=== PATIENT | male | born 1935 | race Caucasian/White ===

== ENCOUNTER 2017-11-28 14:42 | Inpatient (IN) | payer MEDICARE, OTHER ==
[~2017-11-28] VITALS: Ht 175.3 cm; Wt 67.2 kg
[2017-11-28] VITALS (8 sets, daily range): BP systolic 97–128; BP diastolic 47–64
[~2017-11-28 14:42] MED LIST: ALBUAER3 IN; ALPR0.254; ASCO100076 PO; ASPI81CH43; CALC600T10; DIGO0.124 PO; DRON400T OR; DULO20CA PO; ESOM40CA39 PO; FLUT250M9; FLUT50SP13; GLUCTAB8; LEVA1NEB5; MONT10TA23; MULTTAB; PSEU120T18; SIMV-8; TIOTCAP IN; VERA120T
[2017-11-28] MEDS ORDERED: SODIUM CHLORIDE 0.9% 1,000 ML IVB ONE (15:07)
[2017-11-28 15:32] LABS: Eosinophils # (auto) 0.2 uL; Lymphocytes # (auto) 1.1 uL; Red Cell Distribution Width 15.9 % (11.8-14.3)
[2017-11-28 15:33] LABS: Basophils # (auto) 0.1 uL; Basophils % (auto) 0.6 % (0.0-2.0); Eosinophils % (auto) 1.7 % (0.0-7.0); Hematocrit 22.2 % (41.0-53.0); Hemoglobin 7.2 g/dL (13.5-17.5); Lymphocytes % (auto) 10.1 % (10.0-50.0); Mean Corpuscular Hemoglobin 25.6 pg (28.0-32.0); Mean Corpuscular Hgb Conc. 32.2 g/dL (32.0-36.0); Mean Corpuscular Volume 79.5 fL (80.0-100.0); Monocytes % (auto) 8.7 % (0.0-12.0); Neutrophils # (auto) 8.7 uL; Neutrophils % (auto) 78.9 % (37.0-80.0); Platelet Count (auto) 277 10^3/uL (140-450)
[2017-11-28] MEDS ORDERED: PANTOPRAZOLE 40 MG/10 ML VIAL IV ONE ×2 (15:45→17:00)
[2017-11-28 15:52] LABS: INR 1.03 (0.9-1.15)
[2017-11-28 15:53] LABS: Albumin 2.9 g/dL (3.4-5.0); BUN/Creatinine Ratio 29.5; Bilirubin, Total 0.3 mg/dL (0.2-1.0); Calcium 7.7 mg/dL (8.5-10.1); Total Protein 5.7 g/dL (6.4-8.2)
[2017-11-28] MEDS ORDERED: NITROGLYCERIN 0.4 MG SL TAB SL PRN (17:00)
[2017-11-28] MEDS ORDERED: ALBUTEROL SULF 2.5 MG/0.5ML(0.5%) NEB SOLN NEB PRN (17:00)
[2017-11-28] MEDS ORDERED: MORPHINE SULF INJ 2 MG/ML SYRINGE 1ML IV PRN ×3 (17:00)
[2017-11-28] MEDS: SODIUM CHLORIDE 0.9% 1,000 ML IV SCH (17:46)
[2017-11-28] MEDS: LORazepam 2MG/ML-1ML VIAL IV PRN (17:46)
[2017-11-28] MEDS: PROMETHAZINE HCL 25 MG/ML 1ML IV PRN (17:46)
[2017-11-28] MEDS: IPRATROPIUM BROM 0.5 MG/2.5ML INH SOL NEB SCH (18:07)
[2017-11-28] MEDS: BUDESONIDE (INHALATION) 0.5 MG/2 ML NEB NEB SCH (18:07)
[2017-11-28] MEDS: ALBUTEROL SULF 2.5 MG/0.5ML(0.5%) NEB SOLN NEB SCH (18:07)
[2017-11-28 19:47] LABS: Hematocrit 21.2 % (41.0-53.0)
[2017-11-28] MEDS ORDERED: MULTAQ 400 MG PO SCH (22:00)
[2017-11-28] MEDS ORDERED: ADVAIR 250/50 IN SCH (22:00)
[2017-11-28] MEDS: PANTOPRAZOLE 40 MG/10 ML VIAL IV SCH (22:10)
[2017-11-28] MEDS: CEFOTETAN 1GM/D5W 50ML BAG 50 ML IV SCH (22:10)
[2017-11-28] MEDS: ATORVASTATIN 20 MG TAB PO SCH (22:10)
[2017-11-28] MEDS: MONTELUKAST SODIUM 10 MG TAB PO SCH (22:11)
[2017-11-29] VITALS: BP 115/58
[2017-11-29 00:15] VITALS: BP 83/61
[2017-11-29] MEDS: IPRATROPIUM BROM 0.5 MG/2.5ML INH SOL NEB SCH ×4 (00:30→18:41)
[2017-11-29] MEDS: ALBUTEROL SULF 2.5 MG/0.5ML(0.5%) NEB SOLN NEB SCH ×4 (00:30→18:41)
[2017-11-29] MEDS: SODIUM CHLORIDE 0.9% 1,000 ML IV SCH ×3 (01:30→16:49)
[2017-11-29 02:30] VITALS: BP 124/64
[2017-11-29] MEDS: LORazepam 2MG/ML-1ML VIAL IV PRN (03:35)
[2017-11-29 03:43] LABS: Hemoglobin 8.6 g/dL (13.5-17.5)
[2017-11-29 03:45] LABS: Hematocrit 26.7 % (41.0-53.0)
[2017-11-29] MEDS ORDERED: diphenhdrAMINE HCL 50 MG/1 ML VL IV ONE (05:45)
[2017-11-29] MEDS: BUDESONIDE (INHALATION) 0.5 MG/2 ML NEB NEB SCH ×2 (07:00→18:45)
[2017-11-29] MEDS: CEFOTETAN 1GM/D5W 50ML BAG 50 ML IV SCH ×2 (07:27→18:46)
[2017-11-29] MEDS ORDERED: DIGOXIN 0.125 MG TAB PO SCH (10:00)
[2017-11-29] MEDS ORDERED: SPIRIVA IN SCH (10:00)
[2017-11-29] MEDS: DULOXETINE HCL 20 MG PO SCH (10:00)
[2017-11-29] MEDS: DRONEDARONE HCL 400 MG TAB PO SCH ×2 (10:00→22:13)
[2017-11-29] MEDS: PANTOPRAZOLE 40 MG/10 ML VIAL IV SCH ×2 (10:06→20:38)
[2017-11-29 10:18] LABS: Urine Bacteria NONE SEEN /hpf (None Seen); Urine Blood Negative /uL (Negative); Urine Specific Gravity 1.014 (1.001-1.035); Urine WBC 2 /hpf (0 - 3)
[2017-11-29] MEDS ORDERED: DIGOXIN (250MCG/ML) 2 ML AMPULE IV ONE (12:45)
[2017-11-29] MEDS ORDERED: FAMOTIDINE (10MG/ML) 2ML VL IV ONE (12:45)
[2017-11-29 14:30] LABS: Hematocrit 26.8 % (41.0-53.0); Hemoglobin 8.7 g/dL (13.5-17.5)
[2017-11-29 16:27] VITALS: BP 133/68
[2017-11-29] MEDS ORDERED: SIMV-8 PO (16:50)
[2017-11-29] MEDS ORDERED: VERA1TAB9 PO (16:50)
[2017-11-29] MEDS ORDERED: ESCI10TA PO (16:50)
[2017-11-29] MEDS ORDERED: DRON400T PO (16:50)
[2017-11-29] MEDS ORDERED: PRAS10TA6 PO (16:50)
[2017-11-29] MEDS ORDERED: DIGO0.1262 PO (16:50)
[2017-11-29] MEDS ORDERED: TIOTCAP IN (16:50)
[2017-11-29] MEDS ORDERED: ROFL1TAB2 PO ×2 (16:50→18:38)
[2017-11-29] MEDS ORDERED: ESOM40CA39 PO (16:50)
[2017-11-29] MEDS ORDERED: ASPI81CH43 PO (16:50)
[2017-11-29] MEDS ORDERED: FLUT0.05 NAS (16:50)
[2017-11-29] MEDS ORDERED: FLUT1AER3 IN (18:38)
[2017-11-29 19:50] VITALS: BP 132/65
[2017-11-29 20:04] LABS: Hemoglobin 8.3 g/dL (13.5-17.5)
[2017-11-29 20:06] LABS: Hematocrit 25.7 % (41.0-53.0)
[2017-11-29] MEDS: ALPRAZolam 0.25 MG TAB PO PRN (20:38)
[2017-11-29] MEDS: MONTELUKAST SODIUM 10 MG TAB PO SCH (20:38)
[2017-11-29] MEDS: ATORVASTATIN 20 MG TAB PO SCH (20:38)
[2017-11-30] VITALS (7 sets, daily range): BP systolic 102–121; BP diastolic 49–72
[2017-11-30] MEDS: IPRATROPIUM BROM 0.5 MG/2.5ML INH SOL NEB SCH ×4 (00:22→18:44)
[2017-11-30] MEDS: ALBUTEROL SULF 2.5 MG/0.5ML(0.5%) NEB SOLN NEB SCH ×4 (00:22→18:44)
[2017-11-30] MEDS: SODIUM CHLORIDE 0.9% 1,000 ML IV SCH ×3 (00:49→16:49)
[2017-11-30 05:46] LABS: Basophils # (auto) 0.1 uL; Hemoglobin 8.5 g/dL (13.5-17.5); Lymphocytes # (auto) 1.4 uL; Mean Corpuscular Volume 81.5 fL (80.0-100.0); Neutrophils # (auto) 5.5 uL
[2017-11-30 05:47] LABS: Basophils % (auto) 1.1 % (0.0-2.0); Eosinophils # (auto) 0.4 uL; Hematocrit 25.5 % (41.0-53.0); Lymphocytes % (auto) 16.7 % (10.0-50.0); Mean Corpuscular Hemoglobin 27.1 pg (28.0-32.0); Mean Corpuscular Hgb Conc. 33.2 g/dL (32.0-36.0); Monocytes % (auto) 12.2 % (0.0-12.0); Platelet Count (auto) 250 10^3/uL (140-450); Red Blood Cells 3.13 10^6/uL (4.5-5.90); Red Cell Distribution Width 16.3 % (11.8-14.3); White Blood Cell 8.4 10^3/uL (4.4-10.8)
[2017-11-30 06:00] LABS: INR 1.01 (0.9-1.15); Partial Thromboplastin Time 28.7 sec (23.78-33.04); Prothrombin Time 10.8 sec (9.27-12.13)
[2017-11-30 06:01] LABS: BUN/Creatinine Ratio 14.1; Calcium 7.5 mg/dL (8.5-10.1); Potassium 3.4 mmol/L (3.5-5.1)
[2017-11-30] MEDS: BUDESONIDE (INHALATION) 0.5 MG/2 ML NEB NEB SCH ×2 (06:11→21:11)
[2017-11-30] MEDS: CEFOTETAN 1GM/D5W 50ML BAG 50 ML IV SCH ×2 (07:03→18:38)
[2017-11-30] MEDS: DIGOXIN (250MCG/ML) 2 ML AMPULE IV SCH (09:58)
[2017-11-30] MEDS: PANTOPRAZOLE 40 MG/10 ML VIAL IV SCH ×2 (09:58→21:49)
[2017-11-30] MEDS: DULOXETINE HCL 20 MG PO SCH (09:58)
[2017-11-30] MEDS: DRONEDARONE HCL 400 MG TAB PO SCH ×2 (09:58→21:51)
[2017-11-30] MEDS ORDERED: FAMOTIDINE (10MG/ML) 2ML VL IV SCH (10:00)
[2017-11-30] MEDS ORDERED: POTASSIUM CHL 20MEQ/100ML 100 ML IV ONE (10:45)
[2017-11-30] MEDS ORDERED: LIDOCAINE VISCOUS 2% 15ML UD ONE (12:16)
[2017-11-30] MEDS ORDERED: SODIUM CHLORIDE LOCK 10 ML ONE (12:16)
[2017-11-30] MEDS ORDERED: diphenhdrAMINE HCL 50 MG/1 ML VL ONE (12:17)
[2017-11-30] MEDS: MIDAZOLAM HCL 5 MG/ML-1ML VIAL ONE ×2 (12:23→12:26)
[2017-11-30] MEDS: fentaNYL CITRATE 100 MCG/2 ML VL ONE ×2 (12:23→12:26)
[2017-11-30] MEDS: ATORVASTATIN 20 MG TAB PO SCH (21:51)
[2017-11-30] MEDS: MONTELUKAST SODIUM 10 MG TAB PO SCH (21:52)
[2017-12-01] VITALS (7 sets, daily range): BP systolic 100–119; BP diastolic 56–65
[2017-12-01] MEDS: IPRATROPIUM BROM 0.5 MG/2.5ML INH SOL NEB SCH ×4 (00:32→19:00)
[2017-12-01] MEDS: ALBUTEROL SULF 2.5 MG/0.5ML(0.5%) NEB SOLN NEB SCH ×4 (00:32→19:00)
[2017-12-01] MEDS: ALPRAZolam 0.25 MG TAB PO PRN (00:40)
[2017-12-01] MEDS: CEFOTETAN 1GM/D5W 50ML BAG 50 ML IV SCH ×2 (05:36→17:50)
[2017-12-01] MEDS: SODIUM CHLORIDE 0.9% 1,000 ML IV SCH (05:36)
[2017-12-01 05:58] LABS: Basophils # (auto) 0.1 uL; Basophils % (auto) 0.7 % (0.0-2.0); Eosinophils # (auto) 0.4 uL; Eosinophils % (auto) 4.6 % (0.0-7.0); Hematocrit 26.5 % (41.0-53.0); Hemoglobin 8.9 g/dL (13.5-17.5); Lymphocytes # (auto) 1.6 uL; Lymphocytes % (auto) 17.2 % (10.0-50.0); Mean Corpuscular Hemoglobin 27.5 pg (28.0-32.0); Mean Corpuscular Hgb Conc. 33.6 g/dL (32.0-36.0); Mean Corpuscular Volume 81.8 fL (80.0-100.0); Monocytes # (auto) 1.1 uL; Neutrophils # (auto) 6.1 uL; Neutrophils % (auto) 65.5 % (37.0-80.0); Platelet Count (auto) 249 10^3/uL (140-450); Red Blood Cells 3.24 10^6/uL (4.5-5.90); Red Cell Distribution Width 15.9 % (11.8-14.3); White Blood Cell 9.3 10^3/uL (4.4-10.8)
[2017-12-01 06:15] LABS: BUN/Creatinine Ratio 15.2; Calcium 8.2 mg/dL (8.5-10.1); Potassium 3.7 mmol/L (3.5-5.1)
[2017-12-01] MEDS: BUDESONIDE (INHALATION) 0.5 MG/2 ML NEB NEB SCH ×2 (06:55→19:01)
[2017-12-01] MEDS: DULOXETINE HCL 20 MG PO SCH (10:00)
[2017-12-01] MEDS: PANTOPRAZOLE 40 MG/10 ML VIAL IV SCH ×2 (10:41→21:48)
[2017-12-01] MEDS: DRONEDARONE HCL 400 MG TAB PO SCH ×2 (10:43→21:48)
[2017-12-01] MEDS: DIGOXIN (250MCG/ML) 2 ML AMPULE IV SCH (10:47)
[2017-12-01] MEDS: PROMETHAZINE HCL 25 MG/ML 1ML IV PRN (20:37)
[2017-12-01] MEDS: ATORVASTATIN 20 MG TAB PO SCH (21:48)
[2017-12-01] MEDS: MONTELUKAST SODIUM 10 MG TAB PO SCH (21:48)
[2017-12-02] VITALS: BP 123/66
[2017-12-02] MEDS: IPRATROPIUM BROM 0.5 MG/2.5ML INH SOL NEB SCH ×3 (00:44→11:37)
[2017-12-02] MEDS: ALBUTEROL SULF 2.5 MG/0.5ML(0.5%) NEB SOLN NEB SCH ×3 (00:44→11:37)
[2017-12-02 05:00] VITALS: BP 103/57
[2017-12-02] MEDS: CEFOTETAN 1GM/D5W 50ML BAG 50 ML IV SCH (05:40)
[2017-12-02 05:52] LABS: Basophils # (auto) 0.1 uL; Basophils % (auto) 0.8 % (0.0-2.0); Eosinophils # (auto) 0.4 uL; Eosinophils % (auto) 4.7 % (0.0-7.0); Hematocrit 25.9 % (41.0-53.0); Hemoglobin 8.8 g/dL (13.5-17.5); Lymphocytes # (auto) 1.3 uL; Lymphocytes % (auto) 16.5 % (10.0-50.0); Mean Corpuscular Hemoglobin 27.2 pg (28.0-32.0); Mean Corpuscular Hgb Conc. 33.8 g/dL (32.0-36.0); Mean Corpuscular Volume 80.3 fL (80.0-100.0); Monocytes # (auto) 1.2 uL; Monocytes % (auto) 14.6 % (0.0-12.0); Neutrophils # (auto) 5.1 uL; Neutrophils % (auto) 63.4 % (37.0-80.0); Platelet Count (auto) 258 10^3/uL (140-450); Red Blood Cells 3.22 10^6/uL (4.5-5.90)
[2017-12-02 05:57] LABS: Calcium 7.9 mg/dL (8.5-10.1); Potassium 3.4 mmol/L (3.5-5.1)
[2017-12-02 06:00] LABS: BUN/Creatinine Ratio 14.1
[2017-12-02] MEDS: BUDESONIDE (INHALATION) 0.5 MG/2 ML NEB NEB SCH (06:56)
[2017-12-02 09:00] VITALS: BP 126/60
[2017-12-02] MEDS ORDERED: DIGOXIN 0.125 MG TAB PO SCH (10:00)
[2017-12-02] MEDS: PANTOPRAZOLE 40 MG/10 ML VIAL IV SCH (10:13)
[2017-12-02 11:24] VITALS: BP 126/60
== END 2017-12-02 12:48 | disposition home or self-care (01) | DRG 378 ==
LOC: ER 14:42 → EDBD 14:42 → TELE 14:43 → DOU IN ICU 11-29 16:09 → TELE-CENTR 12-01 23:45
PROVIDERS: ADMIT Internal Medicine; ATTEND Internal Medicine
PROC: 30233N1 Transfusion of Nonautologous Red Blood Cells into Peripheral Vein, Percutaneous Approach (ICD-10-PCS; principal; 2017-11-28)
PROC: 0D758ZZ Dilation of Esophagus, Via Natural or Artificial Opening Endoscopic (ICD-10-PCS; 2017-11-30)
DX: K92.0 Hematemesis (principal); E44.0 Moderate protein-calorie malnutrition; I48.92 Unspecified atrial flutter; D62 Acute posthemorrhagic anemia; D68.69 Other thrombophilia; K22.2 Esophageal obstruction; N20.0 Calculus of kidney; Z87.442 Personal history of urinary calculi; I25.10 Atherosclerotic heart disease of native coronary artery without angina pectoris; Z95.5 Presence of coronary angioplasty implant and graft; I48.0 Paroxysmal atrial fibrillation; I73.9 Peripheral vascular disease, unspecified; E78.5 Hyperlipidemia, unspecified; D64.9 Anemia, unspecified; Z68.21 Body mass index [BMI] 21.0-21.9, adult; Z88.8 Allergy status to other drugs, medicaments and biological substances; K44.9 Diaphragmatic hernia without obstruction or gangrene; I10 Essential (primary) hypertension; J44.9 Chronic obstructive pulmonary disease, unspecified; K80.20 Calculus of gallbladder without cholecystitis without obstruction; N28.1 Cyst of kidney, acquired; N40.0 Benign prostatic hyperplasia without lower urinary tract symptoms; Z90.79 Acquired absence of other genital organ(s)
CPT/HCPCS: 36415; 43248; 71045; 74176; 76775; 80048; 80053; 81001; 82150; 83690; 83735; 85014; 85018; 85025; 85045; 85610; 85730; 86850; 86900; 86901; 86920; 87081; 93005; 94640; 94761; 96374; 99291; A6257; C9113; J2250; J3480; J3490

== ENCOUNTER 2019-02-10 15:04 | Emergency (ER) | payer MEDICARE, OTHER ==
[~2019-02-10] VITALS: Ht 182.9 cm; Wt 66.2 kg
[~2019-02-10 15:04] MED LIST changes: -ALPR0.254; +ALPR0.254 PO; +ASCO500C49 PO; +ASPI81CH43 PO; +CLOP75TA28 PO; +DIGO0.1262 PO; -DRON400T OR; +DRON400T PO; +ESCI10TA PO; +FLUT0.05 NAS; +FLUT1AER3 IN; -FLUT50SP13; -GLUCTAB8; +PRAS10TA6 PO; +ROFL1TAB2 PO; -SIMV-8; +SIMV-8 PO; +VERA120T3 PO
[2019-02-10] MEDS ORDERED: DILTIAZEM HCL 25 MG/5 ML VIAL IV ONE ×2 (17:28→17:45)
[2019-02-10] MEDS ORDERED: DILTIAZEM HCL 120MG ER CAP PO ONE ×2 (17:33→17:45)
[2019-02-10 18:20] LABS: Basophils # (auto) 0.1 uL; Eosinophils # (auto) 0.2 uL; Hemoglobin 11.7 g/dL (13.5-17.5); Lymphocytes # (auto) 1.5 uL; Lymphocytes % (auto) 19.6 % (10.0-50.0); Mean Corpuscular Hemoglobin 23.4 pg (28.0-32.0); Mean Corpuscular Volume 75.1 fL (80.0-100.0)
[2019-02-10 18:22] LABS: Basophils % (auto) 0.9 % (0.0-2.0); Eosinophils % (auto) 2.5 % (0.0-7.0); Hematocrit 37.4 % (41.0-53.0); Mean Corpuscular Hgb Conc. 31.1 g/dL (32.0-36.0); Monocytes # (auto) 0.8 uL; Monocytes % (auto) 11.3 % (0.0-12.0); Neutrophils % (auto) 65.7 % (37.0-80.0); Platelet Count (auto) 258 10^3/uL (140-450); Red Blood Cells 4.99 10^6/uL (4.5-5.90); Red Cell Distribution Width 16.9 % (11.8-14.3); White Blood Cell 7.5 10^3/uL (4.4-10.8)
[2019-02-10 18:25] LABS: Alanine Aminotransferase 23 U/L (16-61); Albumin 3.7 g/dL (3.4-5.0); Anion Gap 9 (5-15); Blood Urea Nitrogen 15 mg/dL (7-18); Calcium 8.6 mg/dL (8.5-10.1); Carbon Dioxide 24 mmol/L (21-32); Chloride 109 mmol/L (98-107); Potassium 4.1 mmol/L (3.5-5.1); Sodium 142 mmol/L (136-145)
[2019-02-10 18:30] LABS: Alkaline Phosphatase 73 U/L (45-117); Aspartate Aminotransferase 18 U/L (15-37); Bilirubin, Total 0.2 mg/dL (0.2-1.0); GFR African American 107 mL/min; GFR Non-African American 88 mL/min; Glucose 96 mg/dL (74-106); Total Protein 7.6 g/dL (6.4-8.2)
[2019-02-10 18:40] LABS: Urine Bacteria FEW /hpf (None Seen); Urine Blood Negative /uL (Negative); Urine Specific Gravity 1.016 (1.001-1.035); Urine WBC <1 /hpf (0 - 3)
[2019-02-10 19:45] VITALS: BP 102/69
== END 2019-02-10 19:15 | disposition home or self-care (01) ==
LOC: ER 15:04
DX: I48.0 Paroxysmal atrial fibrillation (principal); I25.10 Atherosclerotic heart disease of native coronary artery without angina pectoris; J44.9 Chronic obstructive pulmonary disease, unspecified; F32.9 Major depressive disorder, single episode, unspecified; E78.00 Pure hypercholesterolemia, unspecified; I10 Essential (primary) hypertension; Z90.49 Acquired absence of other specified parts of digestive tract; Z88.1 Allergy status to other antibiotic agents; Z88.8 Allergy status to other drugs, medicaments and biological substances; Z79.82 Long term (current) use of aspirin; Z79.51 Long term (current) use of inhaled steroids; Z79.899 Other long term (current) drug therapy
CPT/HCPCS: 36415; 71045; 80053; 81001; 83735; 84484; 85025; 92960; 93005; 94761; 96374

== ENCOUNTER 2019-05-31 14:20 | Emergency (ER) | payer MEDICARE, OTHER ==
[~2019-05-31] VITALS: Ht 182.9 cm; Wt 65.4 kg
[~2019-05-31 14:20] MED LIST changes: -ASPI81CH43; -ASPI81CH43 PO; +BUDE2SUS3 IN; -CLOP75TA28 PO; -DIGO0.124 PO; -DIGO0.1262 PO; -DULO20CA PO; -ESCI10TA PO; -FLUT0.05 NAS; -FLUT250M9; +GLUC1TAB18 PO; +LACTTAB OR; -LEVA1NEB5; +LINA1CAP2 PO; -MONT10TA23; +ONDA-144 PO; -PRAS10TA6 PO; +SERT-274 PO; -SIMV-8 PO; +SIMV5TAB50 PO; -TIOTCAP IN; -VERA120T; -VERA120T3 PO
[2019-05-31 15:21] LABS: Basophils # (auto) 0.1 uL; Hemoglobin 11.4 g/dL (13.5-17.5); Monocytes # (auto) 1.4 uL; White Blood Cell 15.2 10^3/uL (4.4-10.8)
[2019-05-31 15:22] LABS: Basophils % (auto) 0.9 % (0.0-2.0); Eosinophils # (auto) 0.1 uL; Eosinophils % (auto) 0.7 % (0.0-7.0); Hematocrit 34.9 % (41.0-53.0); Lymphocytes # (auto) 1.6 uL; Lymphocytes % (auto) 10.3 % (10.0-50.0); Mean Corpuscular Hemoglobin 25.1 pg (28.0-32.0); Mean Corpuscular Hgb Conc. 32.6 g/dL (32.0-36.0); Monocytes % (auto) 9.2 % (0.0-12.0); Neutrophils % (auto) 78.9 % (37.0-80.0); Platelet Count (auto) 289 10^3/uL (140-450); Red Blood Cells 4.53 10^6/uL (4.5-5.90); Red Cell Distribution Width 18.1 % (11.8-14.3)
[2019-05-31 15:38] LABS: Albumin 3.1 g/dL (3.4-5.0); Anion Gap 10 (5-15); Blood Urea Nitrogen 20 mg/dL (7-18); Calcium 8.8 mg/dL (8.5-10.1); Carbon Dioxide 23 mmol/L (21-32); Chloride 108 mmol/L (98-107); GFR African American 119 mL/min; GFR Non-African American 98 mL/min; Glucose 88 mg/dL (74-106); Potassium 3.6 mmol/L (3.5-5.1); Sodium 141 mmol/L (136-145)
[2019-05-31 15:43] LABS: Alanine Aminotransferase 18 U/L (16-61); Alkaline Phosphatase 69 U/L (45-117); Aspartate Aminotransferase 11 U/L (15-37); Bilirubin, Total 0.4 mg/dL (0.2-1.0); Total Protein 7.2 g/dL (6.4-8.2)
[2019-05-31] MEDS ORDERED: PROMETHAZINE W/CODEINE 5 ML ORAL SYRUP PO ONE (22:45)
[2019-05-31 22:51] VITALS: BP 121/65
== END 2019-05-31 22:53 | disposition home or self-care (01) ==
LOC: ER 14:20
DX: J44.9 Chronic obstructive pulmonary disease, unspecified (principal); I48.91 Unspecified atrial fibrillation; I25.10 Atherosclerotic heart disease of native coronary artery without angina pectoris; E78.5 Hyperlipidemia, unspecified; I10 Essential (primary) hypertension
CPT/HCPCS: 36415; 71046; 80053; 84484; 85025; 93005

== ENCOUNTER 2019-09-27 12:27 | Inpatient (IN) | payer MEDICARE, OTHER ==
[~2019-09-27] VITALS: Ht 182.9 cm; Wt 68.0 kg
[2019-09-27] MEDS ORDERED: SODIUM CHLORIDE 0.9% 1,000 ML IVB ONE (13:32)
[2019-09-27] MEDS ORDERED: DIGOXIN (250MCG/ML) 2 ML AMPULE IV ONE (13:45)
[2019-09-27 14:08] LABS: Albumin 3.3 g/dL (3.4-5.0); Anion Gap 7 (5-15); Blood Urea Nitrogen 14 mg/dL (7-18); Calcium 9.1 mg/dL (8.5-10.1); Carbon Dioxide 26 mmol/L (21-32); Chloride 110 mmol/L (98-107); Glucose 86 mg/dL (74-106); Magnesium 2.2 mg/dL (1.6-2.6); Potassium 3.3 mmol/L (3.5-5.1); Sodium 143 mmol/L (136-145)
[2019-09-27 14:14] LABS: Alanine Aminotransferase 19 U/L (16-61); Alkaline Phosphatase 66 U/L (45-117); Aspartate Aminotransferase 17 U/L (15-37); BUN/Creatinine Ratio 19.7; Bilirubin, Total 0.3 mg/dL (0.2-1.0); GFR African American 137 mL/min; GFR Non-African American 113 mL/min; Total Protein 7.8 g/dL (6.4-8.2)
[2019-09-27 14:21] LABS: INR 1.04 (0.9-1.15); Partial Thromboplastin Time 31.3 sec (23.64-32.05)
[2019-09-27 14:32] LABS: Basophils # (auto) 0.1 10 ^3/uL (0-0.2); Eosinophils # (auto) 0.2 10 ^3/uL (0-0.8); Hematocrit 39.3 % (41.0-53.0); Monocytes # (auto) 1.2 10 ^3/uL (0-1.3); White Blood Cell 13.1 10^3/uL (4.4-10.8)
[2019-09-27 14:33] LABS: Basophils % (auto) 0.4 % (0.0-2.0); Eosinophils % (auto) 1.3 % (0.0-7.0); Hemoglobin 12.3 g/dL (13.5-17.5); Lymphocytes # (auto) 1.6 10 ^3/uL (0.4-5.4); Lymphocytes % (auto) 12.1 % (10.0-50.0); Mean Corpuscular Hemoglobin 24.2 pg (28.0-32.0); Mean Corpuscular Hgb Conc. 31.3 g/dL (32.0-36.0); Mean Corpuscular Volume 77.4 fL (80.0-100.0); Monocytes % (auto) 9.5 % (0.0-12.0); Neutrophils % (auto) 76.7 % (37.0-80.0); Platelet Count (auto) 293 10^3/uL (140-450); Red Blood Cells 5.08 10^6/uL (4.5-5.90); Red Cell Distribution Width 18.8 % (11.8-14.3)
[2019-09-27] MEDS ORDERED: cefTRIAXone 1GM/50ML D5W 50 ML IV ONE (15:15)
[2019-09-27] MEDS ORDERED: POTASSIUM CHL 20 Meq TABLET PO ONE (15:15)
[2019-09-27] MEDS ORDERED: ACETAMINOPHEN 500 MG TAB PO PRN (16:15)
[2019-09-27] MEDS ORDERED: NITROGLYCERIN 0.4 MG SL TAB SL PRN (16:15)
[2019-09-27] MEDS ORDERED: MORPHINE SULF INJ 2 MG/ML SYRINGE 1ML IV PRN (16:15)
[2019-09-27] MEDS: ENOXAPARIN SOD 40 MG/0.4 ML SYRINGE SC SCH (16:27)
[2019-09-27] MEDS: ZINC SULFATE 220mg CAP or TAB PO SCH (16:27)
[2019-09-27] MEDS ORDERED: ASCORBIC ACID 1,000 MG TAB PO SCH (16:27)
[2019-09-27 17:04] LABS: Lactic Acid w/Reflex 2.1 mmol/L (0.4-2.0)
[2019-09-27 17:27] LABS: CRP High Sensitivity 2.51 mg/dL (< 0.3)
[2019-09-27] MEDS ORDERED: LEVALBUTEROL HCL 1.25 MG/3 ML NEB NEB SCH (18:00)
[2019-09-27] MEDS ORDERED: IPRATROPIUM BROM 0.5 MG/2.5ML INH SOL NEB SCH (18:00)
[2019-09-27 18:20] VITALS: BP 121/67
[2019-09-27 19:21] VITALS: BP 127/67
[2019-09-27] MEDS: PIPERACILLIN-TAZOB 3.375GM 100 ML IV SCH ×2 (19:23→23:38)
[2019-09-27 20:00] VITALS: BP 106/63
[2019-09-27] MEDS ORDERED: GABA300C10 PO (20:11)
[2019-09-27] MEDS ORDERED: GABAPENTIN 300 MG CAP PO ONE (21:15)
[2019-09-27] MEDS: methylPREDNISolone SOD SUCC 40 MG/ML VL IV SCH (21:30)
[2019-09-27] MEDS: DOXYCYCLINE 100 MG TAB/CAP PO SCH (21:30)
[2019-09-27] MEDS: DRONEDARONE HCL 400 MG TAB PO SCH (21:31)
[2019-09-27] MEDS: ALPRAZolam 0.25 MG TAB PO PRN (21:58)
[2019-09-27] MEDS ORDERED: ALBUTEROL SULF HFA 90MCG INH 200DOSE IN SCH (22:00)
[2019-09-27] MEDS ORDERED: BUDESONIDE (INHALATION) 0.5 MG/2 ML NEB NEB SCH (22:00)
[2019-09-27 22:36] LABS: Urine Bacteria NONE SEEN /hpf (None Seen); Urine Blood Negative /uL (Negative); Urine Specific Gravity 1.018 (1.001-1.035); Urine WBC 1 /hpf (0 - 3)
[2019-09-27] MEDS ORDERED: GABA-339 PO (22:57)
[2019-09-28] VITALS (8 sets, daily range): BP systolic 105–125; BP diastolic 60–70
[2019-09-28] MEDS: guaiFENesin-DM 100/10mg/5ml SYR PO PRN ×2 (01:05→11:34)
[2019-09-28 05:37] LABS: Basophils # (auto) 0 10 ^3/uL (0-0.2); Basophils % (auto) 0.3 % (0.0-2.0); Eosinophils # (auto) 0 10 ^3/uL (0-0.8); Eosinophils % (auto) 0.1 % (0.0-7.0); Hematocrit 32.5 % (41.0-53.0); Hemoglobin 10.2 g/dL (13.5-17.5); Lymphocytes # (auto) 0.3 10 ^3/uL (0.4-5.4); Lymphocytes % (auto) 4.9 % (10.0-50.0); Mean Corpuscular Hemoglobin 24.2 pg (28.0-32.0); Mean Corpuscular Hgb Conc. 31.3 g/dL (32.0-36.0); Mean Corpuscular Volume 77.4 fL (80.0-100.0); Monocytes # (auto) 0.1 10 ^3/uL (0-1.3); Monocytes % (auto) 1.6 % (0.0-12.0); Neutrophils # (auto) 6.6 10 ^3/uL (1.6-8.6); Neutrophils % (auto) 93.1 % (37.0-80.0); Platelet Count (auto) 226 10^3/uL (140-450); Red Cell Distribution Width 18.5 % (11.8-14.3); White Blood Cell 7.1 10^3/uL (4.4-10.8)
[2019-09-28 06:00] LABS: Potassium 3.9 mmol/L (3.5-5.1)
[2019-09-28] MEDS: PIPERACILLIN-TAZOB 3.375GM 100 ML IV SCH ×3 (06:05→20:37)
[2019-09-28 06:07] LABS: Albumin 2.6 g/dL (3.4-5.0); BUN/Creatinine Ratio 25.8; Bilirubin, Total 0.3 mg/dL (0.2-1.0); Calcium 8.3 mg/dL (8.5-10.1); Total Protein 6.2 g/dL (6.4-8.2)
[2019-09-28] MEDS: LEVALBUTEROL HCL 1.25 MG/3 ML NEB NEB SCH ×4 (07:11→19:17)
[2019-09-28] MEDS ORDERED: CHOLECALCIFEROL (VITD3) 1,000IU=25mCg TAB PO SCH (10:00)
[2019-09-28] MEDS ORDERED: DIGOXIN 0.125 MG TAB PO SCH (10:00)
[2019-09-28] MEDS: methylPREDNISolone SOD SUCC 40 MG/ML VL IV SCH ×2 (10:51→21:45)
[2019-09-28] MEDS: DOXYCYCLINE 100 MG TAB/CAP PO SCH (10:52)
[2019-09-28] MEDS: ZINC SULFATE 220mg CAP or TAB PO SCH (10:53)
[2019-09-28] MEDS: ASPirin 81 mg TAB PO SCH (10:53)
[2019-09-28] MEDS: ENOXAPARIN SOD 40 MG/0.4 ML SYRINGE SC SCH (10:53)
[2019-09-28] MEDS: DRONEDARONE HCL 400 MG TAB PO SCH ×2 (11:34→21:45)
[2019-09-28] MEDS ORDERED: ACETAMINOPHEN 500 MG TAB PO PRN (11:45)
[2019-09-28] MEDS ORDERED: FUROSEMIDE 20 MG/2 ML VIAL IV ONE (11:45)
[2019-09-28] MEDS ORDERED: POTASSIUM CHL 20 Meq TABLET PO ONE (11:45)
[2019-09-28] MEDS ORDERED: PANTOPRAZOLE 40 MG TAB PO ONE (11:45)
[2019-09-28] MEDS ORDERED: ONDANSETRON HCL 4 MG/2 ML VIAL IV PRN (14:30)
[2019-09-28] MEDS: IPRATROPIUM BROM 0.5 MG/2.5ML INH SOL NEB SCH (19:17)
[2019-09-28] MEDS: BUDESONIDE (INHALATION) 0.5 MG/2 ML NEB NEB SCH (19:17)
[2019-09-28] MEDS: ALPRAZolam 0.25 MG TAB PO PRN (21:45)
[2019-09-28] MEDS: GABAPENTIN 300 MG CAP PO SCH (21:45)
[2019-09-29] MEDS: IPRATROPIUM BROM 0.5 MG/2.5ML INH SOL NEB SCH ×4 (00:35→19:14)
[2019-09-29] MEDS: LEVALBUTEROL HCL 1.25 MG/3 ML NEB NEB SCH ×4 (00:35→19:14)
[2019-09-29] MEDS: PIPERACILLIN-TAZOB 3.375GM 100 ML IV SCH (03:56)
[2019-09-29 05:00] VITALS: BP 106/58
[2019-09-29] MEDS: BUDESONIDE (INHALATION) 0.5 MG/2 ML NEB NEB SCH ×2 (07:03→19:14)
[2019-09-29 07:43] LABS: Calcium 8.6 mg/dL (8.5-10.1); Potassium 3.7 mmol/L (3.5-5.1)
[2019-09-29 07:47] LABS: BUN/Creatinine Ratio 25.4
[2019-09-29 08:00] VITALS: BP 112/67
[2019-09-29 09:00] VITALS: BP 112/67
[2019-09-29] MEDS: DRONEDARONE HCL 400 MG TAB PO SCH ×2 (10:00→21:36)
[2019-09-29] MEDS: ZINC SULFATE 220mg CAP or TAB PO SCH (10:19)
[2019-09-29] MEDS: PANTOPRAZOLE 40 MG TAB PO SCH (10:19)
[2019-09-29] MEDS: GABAPENTIN 300 MG CAP PO SCH ×2 (10:19→21:36)
[2019-09-29] MEDS: methylPREDNISolone SOD SUCC 40 MG/ML VL IV SCH (10:19)
[2019-09-29] MEDS: ENOXAPARIN SOD 40 MG/0.4 ML SYRINGE SC SCH (10:19)
[2019-09-29] MEDS: ASPirin 81 mg TAB PO SCH (10:20)
[2019-09-29] MEDS: FLORASTOR (S. BOULARDII) 250 MG CAP PO SCH (10:20)
[2019-09-29] MEDS: SERTRALINE HCL 50 MG TAB PO SCH (10:20)
[2019-09-29 12:45] VITALS: BP 123/69
[2019-09-29 17:00] VITALS: BP 114/62
[2019-09-29] MEDS: DOXYCYCLINE 100 MG TAB/CAP PO SCH (21:36)
[2019-09-29] MEDS: ALPRAZolam 0.25 MG TAB PO PRN (21:46)
[2019-09-29 22:00] VITALS: BP 115/63
[2019-09-29] MEDS: guaiFENesin-DM 100/10mg/5ml SYR PO PRN (22:15)
[2019-09-30] MEDS: LEVALBUTEROL HCL 1.25 MG/3 ML NEB NEB SCH ×4 (00:33→18:58)
[2019-09-30 05:30] VITALS: BP 117/69
[2019-09-30] MEDS: BUDESONIDE (INHALATION) 0.5 MG/2 ML NEB NEB SCH ×2 (06:21→18:58)
[2019-09-30] MEDS: IPRATROPIUM BROM 0.5 MG/2.5ML INH SOL NEB SCH ×3 (06:21→18:58)
[2019-09-30 09:00] VITALS: BP 112/53
[2019-09-30] MEDS: FLORASTOR (S. BOULARDII) 250 MG CAP PO SCH (10:59)
[2019-09-30] MEDS: GABAPENTIN 300 MG CAP PO SCH ×2 (10:59→21:12)
[2019-09-30] MEDS: DOXYCYCLINE 100 MG TAB/CAP PO SCH ×2 (10:59→21:12)
[2019-09-30] MEDS: DRONEDARONE HCL 400 MG TAB PO SCH ×2 (10:59→21:11)
[2019-09-30] MEDS: predniSONE 20 MG TAB PO SCH (11:00)
[2019-09-30] MEDS: SERTRALINE HCL 50 MG TAB PO SCH (11:00)
[2019-09-30] MEDS: ZINC SULFATE 220mg CAP or TAB PO SCH (11:00)
[2019-09-30] MEDS: ASPirin 81 mg TAB PO SCH (11:00)
[2019-09-30] MEDS: PANTOPRAZOLE 40 MG TAB PO SCH (11:00)
[2019-09-30] MEDS: guaiFENesin-DM 100/10mg/5ml SYR PO PRN (11:11)
[2019-09-30 12:42] VITALS: BP 120/79
[2019-09-30] MEDS ORDERED: ONDANSETRON HCL 4 MG/2 ML VIAL IV PRN (13:00)
[2019-09-30] MEDS ORDERED: FUROSEMIDE 20 MG/2 ML VIAL IV ONE (13:00)
[2019-09-30 17:08] VITALS: BP 115/92
[2019-09-30 22:00] VITALS: BP 116/67
[2019-09-30] MEDS: ALPRAZolam 0.25 MG TAB PO PRN (22:06)
[2019-09-30 23:33] VITALS: BP 116/67
[2019-10-01] MEDS: LEVALBUTEROL HCL 1.25 MG/3 ML NEB NEB SCH ×3 (00:16→13:31)
[2019-10-01 05:00] VITALS: BP 102/52
[2019-10-01] MEDS: BUDESONIDE (INHALATION) 0.5 MG/2 ML NEB NEB SCH ×2 (06:27→22:40)
[2019-10-01] MEDS: IPRATROPIUM BROM 0.5 MG/2.5ML INH SOL NEB SCH ×4 (06:27→22:39)
[2019-10-01 09:00] VITALS: BP 106/56
[2019-10-01] MEDS ORDERED: FUROSEMIDE 20 MG/2 ML VIAL IV SCH (10:00)
[2019-10-01] MEDS: predniSONE 20 MG TAB PO SCH (10:34)
[2019-10-01] MEDS: FLORASTOR (S. BOULARDII) 250 MG CAP PO SCH (10:34)
[2019-10-01] MEDS: GABAPENTIN 300 MG CAP PO SCH ×2 (10:34→21:37)
[2019-10-01] MEDS: ZINC SULFATE 220mg CAP or TAB PO SCH (10:34)
[2019-10-01] MEDS: ASPirin 81 mg TAB PO SCH (10:35)
[2019-10-01] MEDS: SERTRALINE HCL 50 MG TAB PO SCH (10:35)
[2019-10-01] MEDS: PANTOPRAZOLE 40 MG TAB PO SCH (10:35)
[2019-10-01] MEDS: DOXYCYCLINE 100 MG TAB/CAP PO SCH ×2 (10:35→21:37)
[2019-10-01] MEDS: DRONEDARONE HCL 400 MG TAB PO SCH ×2 (10:37→21:36)
[2019-10-01 14:13] VITALS: BP 106/64
[2019-10-01] MEDS ORDERED: METOPROLOL TARTRATE 1MG/1ML-5ML VIAL IV PRN (15:30)
[2019-10-01 16:42] VITALS: BP 96/61
[2019-10-01] MEDS: NYSTATIN (MOUTH-THROAT) 500,000 UNITS/5 ML SUSP MT SCH ×2 (17:58→21:36)
[2019-10-01] MEDS: FUROSEMIDE 40 MG/4 ML VIAL IV SCH (17:58)
[2019-10-01] MEDS: ALBUTEROL SULF 2.5 MG/0.5ML(0.5%) NEB SOLN NEB SCH ×2 (19:13→22:39)
[2019-10-01] MEDS: methylPREDNISolone SOD SUCC 40 MG/ML VL IV SCH (21:36)
[2019-10-01] MEDS: ALPRAZolam 0.25 MG TAB PO PRN (21:37)
[2019-10-01] MEDS: guaiFENesin-DM 100/10mg/5ml SYR PO PRN (21:51)
[2019-10-01 22:00] VITALS: BP 98/55
[2019-10-02] MEDS: ALBUTEROL SULF 2.5 MG/0.5ML(0.5%) NEB SOLN NEB SCH ×4 (02:28→14:36)
[2019-10-02] MEDS: IPRATROPIUM BROM 0.5 MG/2.5ML INH SOL NEB SCH ×4 (02:28→14:36)
[2019-10-02 05:00] VITALS: BP 102/60
[2019-10-02] MEDS: FUROSEMIDE 40 MG/4 ML VIAL IV SCH (05:37)
[2019-10-02 05:38] LABS: Basophils # (auto) 0 10 ^3/uL (0-0.2); Eosinophils # (auto) 0 10 ^3/uL (0-0.8); Hemoglobin 12.1 g/dL (13.5-17.5); Lymphocytes # (auto) 0.5 10 ^3/uL (0.4-5.4); Red Cell Distribution Width 18.2 % (11.8-14.3)
[2019-10-02] MEDS: methylPREDNISolone SOD SUCC 40 MG/ML VL IV SCH (05:38)
[2019-10-02] MEDS: NYSTATIN (MOUTH-THROAT) 500,000 UNITS/5 ML SUSP MT SCH ×2 (05:38→12:29)
[2019-10-02 05:40] LABS: Basophils % (auto) 0.1 % (0.0-2.0); Hematocrit 37.6 % (41.0-53.0); Mean Corpuscular Hemoglobin 24.6 pg (28.0-32.0); Mean Corpuscular Hgb Conc. 32.1 g/dL (32.0-36.0); Mean Corpuscular Volume 76.6 fL (80.0-100.0); Monocytes # (auto) 0.3 10 ^3/uL (0-1.3); Monocytes % (auto) 3.1 % (0.0-12.0); Neutrophils # (auto) 8.9 10 ^3/uL (1.6-8.6); Neutrophils % (auto) 91.8 % (37.0-80.0); Platelet Count (auto) 266 10^3/uL (140-450); Red Blood Cells 4.91 10^6/uL (4.5-5.90); White Blood Cell 9.7 10^3/uL (4.4-10.8)
[2019-10-02 05:51] LABS: INR 1.11 (0.9-1.15); Partial Thromboplastin Time 28.2 sec (23.64-32.05)
[2019-10-02 05:58] LABS: Potassium 3.6 mmol/L (3.5-5.1)
[2019-10-02 06:05] LABS: BUN/Creatinine Ratio 33.7; Bilirubin, Total 0.3 mg/dL (0.2-1.0); Calcium 8.6 mg/dL (8.5-10.1); Magnesium 2.1 mg/dL (1.6-2.6); Phosphorus 4.2 mg/dL (2.5-4.90); Total Protein 6.6 g/dL (6.4-8.2)
[2019-10-02 09:00] VITALS: BP 101/62
[2019-10-02] MEDS: DRONEDARONE HCL 400 MG TAB PO SCH (10:37)
[2019-10-02] MEDS: SERTRALINE HCL 50 MG TAB PO SCH (10:37)
[2019-10-02] MEDS: FLORASTOR (S. BOULARDII) 250 MG CAP PO SCH (10:37)
[2019-10-02] MEDS: GABAPENTIN 300 MG CAP PO SCH (10:37)
[2019-10-02] MEDS: DOXYCYCLINE 100 MG TAB/CAP PO SCH (10:37)
[2019-10-02] MEDS: PANTOPRAZOLE 40 MG TAB PO SCH (10:37)
[2019-10-02] MEDS: ASPirin 81 mg TAB PO SCH (10:38)
[2019-10-02] MEDS: ZINC SULFATE 220mg CAP or TAB PO SCH (10:38)
[2019-10-02 13:00] VITALS: BP 137/64
== END 2019-10-02 15:39 | disposition home or self-care (01) | DRG 871 ==
LOC: EDBD 12:27 → ER 12:27 → TELE 12:28 → TELE-EAST 18:14 → TELE-WESTW 23:39
PROVIDERS: ADMIT Nurse Practitioner Acute Care; ATTEND Internal Medicine
DX: A41.9 Sepsis, unspecified organism (principal); J18.9 Pneumonia, unspecified organism; J96.21 Acute and chronic respiratory failure with hypoxia; J44.1 Chronic obstructive pulmonary disease with (acute) exacerbation; D68.59 Other primary thrombophilia; E44.1 Mild protein-calorie malnutrition; R64 Cachexia; J44.0 Chronic obstructive pulmonary disease with (acute) lower respiratory infection; E87.6 Hypokalemia; D64.9 Anemia, unspecified; F41.9 Anxiety disorder, unspecified; F32.9 Major depressive disorder, single episode, unspecified; I48.0 Paroxysmal atrial fibrillation; I25.10 Atherosclerotic heart disease of native coronary artery without angina pectoris; K59.00 Constipation, unspecified; I11.0 Hypertensive heart disease with heart failure; I50.9 Heart failure, unspecified; E78.5 Hyperlipidemia, unspecified; K21.9 Gastro-esophageal reflux disease without esophagitis; Z88.1 Allergy status to other antibiotic agents; Z88.8 Allergy status to other drugs, medicaments and biological substances; I25.2 Old myocardial infarction; Z90.49 Acquired absence of other specified parts of digestive tract; Z90.89 Acquired absence of other organs; Z79.899 Other long term (current) drug therapy; Z79.51 Long term (current) use of inhaled steroids; Z20.828 Contact with and (suspected) exposure to other viral communicable diseases
CPT/HCPCS: 36415; 36600; 71045; 80048; 80053; 80162; 81001; 82728; 82805; 83605; 83615; 83735; 83880; 84100; 84443; 84484; 85025; 85379; 85610; 85730; 86141; 87040; 87070; 87804; 87880; 93005; 94640; 96361; 96365; 96372; 96375; 97116; 97530; G0378; J2405; J2543

== ENCOUNTER 2019-10-26 02:40 | Inpatient (IN) | payer MEDICARE, OTHER ==
[~2019-10-26] VITALS: Ht 188 cm; Wt 67.3 kg
[~2019-10-26 02:40] MED LIST changes: +GABA-339 PO
[2019-10-26] MEDS ORDERED: ASPirin 81 mg TAB PO ONE (05:00)
[2019-10-26] MEDS ORDERED: NITROGLYCERIN 0.2MG/HR TOPICAL PATCH TD ONE (05:00)
[2019-10-26 06:49] LABS: Basophils # (auto) 0 10 ^3/uL (0-0.2); Eosinophils # (auto) 0.3 10 ^3/uL (0-0.8); Eosinophils % (auto) 3.4 % (0.0-7.0); Monocytes # (auto) 0.7 10 ^3/uL (0-1.3)
[2019-10-26 06:51] LABS: Basophils % (auto) 0.6 % (0.0-2.0); Hemoglobin 10.6 g/dL (13.5-17.5); Lymphocytes # (auto) 1.5 10 ^3/uL (0.4-5.4); Lymphocytes % (auto) 20.4 % (10.0-50.0); Mean Corpuscular Hemoglobin 24.7 pg (28.0-32.0); Mean Corpuscular Hgb Conc. 32.1 g/dL (32.0-36.0); Mean Corpuscular Volume 77.1 fL (80.0-100.0); Monocytes % (auto) 9.4 % (0.0-12.0); Neutrophils # (auto) 4.8 10 ^3/uL (1.6-8.6); Neutrophils % (auto) 66.2 % (37.0-80.0); Platelet Count (auto) 169 10^3/uL (140-450); Red Blood Cells 4.28 10^6/uL (4.5-5.90); Red Cell Distribution Width 19.1 % (11.8-14.3); White Blood Cell 7.3 10^3/uL (4.4-10.8)
[2019-10-26 07:04] LABS: INR 1.02 (0.9-1.15); Partial Thromboplastin Time 29.8 sec (23.64-32.05)
[2019-10-26 07:35] LABS: Albumin 2.8 g/dL (3.4-5.0); BUN/Creatinine Ratio 26.8; Bilirubin, Total 0.2 mg/dL (0.2-1.0); Calcium 8.6 mg/dL (8.5-10.1); Magnesium 2.2 mg/dL (1.6-2.6); Total Protein 6.2 g/dL (6.4-8.2)
[2019-10-26] MEDS ORDERED: LACTULOSE 20Gm/30ML SOLN PO PRN (09:00)
[2019-10-26] MEDS: SODIUM CHLORIDE 0.9% 1,000 ML IV SCH (09:14)
[2019-10-26] MEDS ORDERED: NITROGLYCERIN 0.4 MG SL TAB SL PRN (09:45)
[2019-10-26] MEDS ORDERED: ALBUTEROL SULF 2.5 MG/0.5ML(0.5%) NEB SOLN NEB PRN (09:45)
[2019-10-26] MEDS ORDERED: MORPHINE SULF INJ 2 MG/ML SYRINGE 1ML IV PRN (09:45)
[2019-10-26] MEDS ORDERED: ASCORBIC ACID 1,000 MG TAB PO SCH (10:00)
[2019-10-26] MEDS ORDERED: ASPirin 81 mg TAB PO SCH (10:00)
[2019-10-26] MEDS: Linaclotide Base (Linzess) 72 MCG PO SCH (10:00)
[2019-10-26] MEDS: METOPROLOL TARTRATE 25 MG TAB PO SCH ×3 (10:22→22:00)
[2019-10-26] MEDS: ENOXAPARIN SOD 80 MG/0.8ML SYRINGE SC SCH ×2 (10:22→21:24)
[2019-10-26] MEDS: ALPRAZolam 0.25 MG TAB PO SCH ×2 (10:51→21:20)
[2019-10-26] MEDS: VERAPAMIL HCL 120 mg ER tab PO SCH (10:52)
[2019-10-26] MEDS: SERTRALINE HCL 50 MG TAB PO SCH (10:56)
[2019-10-26] MEDS ORDERED: GABAPENTIN 300 MG CAP PO SCH (11:00)
[2019-10-26] MEDS ORDERED: PANTOPRAZOLE 40 MG TAB PO SCH (11:00)
[2019-10-26 11:07] LABS: Cholesterol 133 mg/dL (< 200); HDL Cholesterol 52 mg/dL (40-59); LDL Cholesterol 83 mg/dL (< 100); Triglycerides 84 mg/dL (< 150)
[2019-10-26 11:30] VITALS: BP 123/67
[2019-10-26] MEDS: ALBUTEROL SULF 2.5 MG/0.5ML(0.5%) NEB SOLN NEB SCH ×3 (11:59→23:23)
[2019-10-26] MEDS: IPRATROPIUM BROM 0.5 MG/2.5ML INH SOL NEB SCH ×3 (11:59→23:22)
[2019-10-26 12:32] VITALS: BP 123/67
[2019-10-26 13:59] VITALS: BP 123/67
[2019-10-26] MEDS: DRONEDARONE HCL 400 MG TAB PO SCH ×2 (14:17→21:34)
[2019-10-26 16:20] VITALS: BP 99/72
[2019-10-26] MEDS ORDERED: ATOR10TA52 PO (19:02)
[2019-10-26] MEDS ORDERED: ALBU2TAB4 PO (19:02)
[2019-10-26] MEDS ORDERED: ASPI325T4 PO (19:02)
[2019-10-26] MEDS ORDERED: VERA120T3 PO (19:02)
[2019-10-26] MEDS ORDERED: DOCU-94 PO (19:02)
[2019-10-26] MEDS: ATORVASTATIN 20 MG TAB PO SCH (21:20)
[2019-10-26 22:00] VITALS: BP 105/62
[2019-10-26] MEDS: SIMVASTATIN 5 MG PO SCH (22:00)
[2019-10-26] MEDS: BUDESONIDE (INHALATION) 0.5 MG/2 ML NEB NEB SCH (22:19)
[2019-10-27] MEDS: SODIUM CHLORIDE 0.9% 1,000 ML IV SCH ×2 (02:27→11:29)
[2019-10-27 03:12] LABS: Urine Bacteria FEW /hpf (None Seen); Urine Blood TRACE /uL (Negative); Urine Specific Gravity 1.007 (1.001-1.035); Urine WBC 3 /hpf (0 - 3)
[2019-10-27] MEDS ORDERED: ACETAMINOPHEN 325 MG TAB PO ONE (04:30)
[2019-10-27 05:00] VITALS: BP 101/65
[2019-10-27 05:16] LABS: Basophils # (auto) 0.1 10 ^3/uL (0-0.2); Eosinophils # (auto) 0.3 10 ^3/uL (0-0.8); Hemoglobin 10.5 g/dL (13.5-17.5); Lymphocytes # (auto) 1.9 10 ^3/uL (0.4-5.4); Monocytes # (auto) 0.7 10 ^3/uL (0-1.3)
[2019-10-27 05:19] LABS: Basophils % (auto) 0.8 % (0.0-2.0); Eosinophils % (auto) 4.8 % (0.0-7.0); Hematocrit 32.3 % (41.0-53.0); Lymphocytes % (auto) 29.4 % (10.0-50.0); Mean Corpuscular Hemoglobin 25.1 pg (28.0-32.0); Mean Corpuscular Hgb Conc. 32.6 g/dL (32.0-36.0); Mean Corpuscular Volume 76.8 fL (80.0-100.0); Monocytes % (auto) 10.5 % (0.0-12.0); Neutrophils # (auto) 3.6 10 ^3/uL (1.6-8.6); Neutrophils % (auto) 54.5 % (37.0-80.0); Platelet Count (auto) 172 10^3/uL (140-450); Red Blood Cells 4.21 10^6/uL (4.5-5.90); Red Cell Distribution Width 18.8 % (11.8-14.3); White Blood Cell 6.6 10^3/uL (4.4-10.8)
[2019-10-27 05:33] LABS: Albumin 2.9 g/dL (3.4-5.0); Calcium 8.1 mg/dL (8.5-10.1); Potassium 3.7 mmol/L (3.5-5.1)
[2019-10-27 05:34] LABS: INR 1.09 (0.9-1.15); Partial Thromboplastin Time 38.3 sec (23.64-32.05)
[2019-10-27 05:38] LABS: BUN/Creatinine Ratio 22.4; Bilirubin, Total 0.4 mg/dL (0.2-1.0); Total Protein 6.1 g/dL (6.4-8.2)
[2019-10-27] MEDS: IPRATROPIUM BROM 0.5 MG/2.5ML INH SOL NEB SCH ×3 (06:06→18:27)
[2019-10-27] MEDS: ALBUTEROL SULF 2.5 MG/0.5ML(0.5%) NEB SOLN NEB SCH ×3 (06:06→18:27)
[2019-10-27] MEDS: BUDESONIDE (INHALATION) 0.5 MG/2 ML NEB NEB SCH ×2 (06:06→18:28)
[2019-10-27] MEDS: Fluticasone-Umeclidinium-Vilan (Trelegy Ellipta 100-62.5-25 Mcg/I IN SCH (06:41)
[2019-10-27] MEDS ORDERED: IODIXANOL 320MG/ML 100ML BTL IV ONE ×4 (07:04→10:51)
[2019-10-27 07:30] VITALS: BP 124/62
[2019-10-27] MEDS ORDERED: LIDOCAINE 2%HCL (LOCAL ANESTH.) INJ 20ML MDV ONE (08:53)
[2019-10-27 09:02] VITALS: BP 124/62
[2019-10-27] MEDS ORDERED: fentaNYL CITRATE 100 MCG/2 ML VL ONE (09:29)
[2019-10-27] MEDS ORDERED: ANGIOMAX 250 MG VIAL IV ONE (09:29)
[2019-10-27] MEDS ORDERED: SODIUM CHL 0.9% 50 ML ONE (09:29)
[2019-10-27] MEDS ORDERED: MIDAZOLAM HCL 1MG/1ML-2 ML VIAL ONE (09:29)
[2019-10-27] MEDS ORDERED: VERAPAMIL 2.5MG/ML INJ 2ML VIAL IV ONE (09:34)
[2019-10-27] MEDS ORDERED: HEPARIN SODIUM (PORCINE) 5000 UNITS/ML 1ML VIAL ONE (09:34)
[2019-10-27] MEDS: METOPROLOL TARTRATE 25 MG TAB PO SCH ×2 (10:00→22:22)
[2019-10-27] MEDS: NITROGLYCERIN 0.2MG/HR TOPICAL PATCH TD SCH (10:00)
[2019-10-27] MEDS: SERTRALINE HCL 50 MG TAB PO SCH (10:00)
[2019-10-27] MEDS: ASPirin 81 mg TAB PO SCH (10:00)
[2019-10-27] MEDS: VERAPAMIL HCL 120 mg ER tab PO SCH (10:00)
[2019-10-27] MEDS: DRONEDARONE HCL 400 MG TAB PO SCH ×2 (10:00→22:21)
[2019-10-27] MEDS: GABAPENTIN 300 MG CAP PO SCH (10:00)
[2019-10-27] MEDS: ASCORBIC ACID 500 MG TAB PO SCH (10:00)
[2019-10-27] MEDS: Linaclotide Base (Linzess) 72 MCG PO SCH (10:00)
[2019-10-27] MEDS: ALPRAZolam 0.25 MG TAB PO SCH ×2 (10:00→22:20)
[2019-10-27] MEDS ORDERED: diphenhdrAMINE HCL 50 MG/1 ML VL ONE (10:13)
[2019-10-27] MEDS ORDERED: CLOPIDOGREL 300 MG TAB ONE (11:27)
[2019-10-27] MEDS ORDERED: CLOPIDOGREL 300 MG TAB PO ONE (11:30)
[2019-10-27] MEDS ORDERED: ASPirin 81 mg TAB ONE (11:36)
[2019-10-27 17:59] VITALS: BP 136/69
[2019-10-27 22:00] VITALS: BP 130/68
[2019-10-27] MEDS: SIMVASTATIN 5 MG PO SCH (22:00)
[2019-10-27] MEDS: ATORVASTATIN 20 MG TAB PO SCH (22:20)
[2019-10-27] MEDS: PANTOPRAZOLE 40 MG TAB PO SCH (22:22)
[2019-10-28] MEDS: SIMVASTATIN 5 MG PO SCH
[2019-10-28] MEDS: IPRATROPIUM BROM 0.5 MG/2.5ML INH SOL NEB SCH ×4 (00:35→18:38)
[2019-10-28] MEDS: ALBUTEROL SULF 2.5 MG/0.5ML(0.5%) NEB SOLN NEB SCH ×4 (00:35→18:38)
[2019-10-28 05:00] VITALS: BP 114/68
[2019-10-28] MEDS: SODIUM CHLORIDE 0.9% 1,000 ML IV SCH ×2 (05:39→14:09)
[2019-10-28] MEDS: Fluticasone-Umeclidinium-Vilan (Trelegy Ellipta 100-62.5-25 Mcg/I IN SCH (06:14)
[2019-10-28 06:29] LABS: Basophils # (auto) 0 10 ^3/uL (0-0.2); Basophils % (auto) 0.6 % (0.0-2.0); Eosinophils # (auto) 0.2 10 ^3/uL (0-0.8); Eosinophils % (auto) 3.6 % (0.0-7.0); Hematocrit 32.8 % (41.0-53.0); Hemoglobin 10.6 g/dL (13.5-17.5); Lymphocytes % (auto) 15.2 % (10.0-50.0); Mean Corpuscular Hgb Conc. 32.2 g/dL (32.0-36.0); Mean Corpuscular Volume 77.5 fL (80.0-100.0); Monocytes # (auto) 0.8 10 ^3/uL (0-1.3); Monocytes % (auto) 12.4 % (0.0-12.0); Neutrophils # (auto) 4.6 10 ^3/uL (1.6-8.6); Neutrophils % (auto) 68.2 % (37.0-80.0); Platelet Count (auto) 158 10^3/uL (140-450); Red Blood Cells 4.23 10^6/uL (4.5-5.90); Red Cell Distribution Width 18.9 % (11.8-14.3); White Blood Cell 6.8 10^3/uL (4.4-10.8)
[2019-10-28] MEDS: BUDESONIDE (INHALATION) 0.5 MG/2 ML NEB NEB SCH ×2 (06:40→18:38)
[2019-10-28 06:50] LABS: Calcium 8.3 mg/dL (8.5-10.1); Potassium 3.7 mmol/L (3.5-5.1)
[2019-10-28 07:02] LABS: BUN/Creatinine Ratio 22.8
[2019-10-28 08:00] VITALS: BP 111/73
[2019-10-28 09:00] VITALS: BP 117/73
[2019-10-28] MEDS: ASPirin 81 mg TAB PO SCH (09:53)
[2019-10-28] MEDS: CLOPIDOGREL BISULFATE 75 MG TAB PO SCH (09:53)
[2019-10-28] MEDS: METOPROLOL TARTRATE 25 MG TAB PO SCH ×2 (09:54→22:00)
[2019-10-28] MEDS: VERAPAMIL HCL 120 mg ER tab PO SCH (09:54)
[2019-10-28] MEDS: GABAPENTIN 300 MG CAP PO SCH (09:54)
[2019-10-28] MEDS: SERTRALINE HCL 50 MG TAB PO SCH (09:54)
[2019-10-28] MEDS: ASCORBIC ACID 500 MG TAB PO SCH (09:55)
[2019-10-28] MEDS: ALPRAZolam 0.25 MG TAB PO SCH ×2 (09:55→22:24)
[2019-10-28] MEDS: NITROGLYCERIN 0.2MG/HR TOPICAL PATCH TD SCH (09:55)
[2019-10-28] MEDS: Linaclotide Base (Linzess) 72 MCG PO SCH ×3 (09:56→20:18)
[2019-10-28] MEDS: PANTOPRAZOLE 40 MG TAB PO SCH ×2 (10:00→22:24)
[2019-10-28] MEDS: DRONEDARONE HCL 400 MG TAB PO SCH ×2 (10:00→22:24)
[2019-10-28 13:00] VITALS: BP 99/49
[2019-10-28 16:46] VITALS: BP 85/51
[2019-10-28] MEDS ORDERED: SODIUM CHLORIDE 0.9% 500 ML IV ONE (19:45)
[2019-10-28 22:00] VITALS: BP 83/44
[2019-10-28] MEDS: ATORVASTATIN 20 MG TAB PO SCH (22:23)
[2019-10-29] VITALS: BP 102/51
[2019-10-29] MEDS: IPRATROPIUM BROM 0.5 MG/2.5ML INH SOL NEB SCH ×3 (00:31→11:34)
[2019-10-29] MEDS: ALBUTEROL SULF 2.5 MG/0.5ML(0.5%) NEB SOLN NEB SCH ×3 (00:31→11:34)
[2019-10-29] MEDS ORDERED: ACETAMINOPHEN 325 MG TAB PO PRN (01:00)
[2019-10-29 05:00] VITALS: BP 99/56
[2019-10-29] MEDS: SODIUM CHLORIDE 0.9% 1,000 ML IV SCH (05:08)
[2019-10-29] MEDS: BUDESONIDE (INHALATION) 0.5 MG/2 ML NEB NEB SCH (06:26)
[2019-10-29] MEDS: Fluticasone-Umeclidinium-Vilan (Trelegy Ellipta 100-62.5-25 Mcg/I IN SCH (07:18)
[2019-10-29 08:06] VITALS: BP 99/56
[2019-10-29 08:14] VITALS: BP 108/59
[2019-10-29 09:00] VITALS: BP 108/59
[2019-10-29] MEDS: GABAPENTIN 300 MG CAP PO SCH (09:36)
[2019-10-29] MEDS: ALPRAZolam 0.25 MG TAB PO SCH (09:36)
[2019-10-29] MEDS: PANTOPRAZOLE 40 MG TAB PO SCH (09:36)
[2019-10-29] MEDS: VERAPAMIL HCL 120 mg ER tab PO SCH (09:36)
[2019-10-29] MEDS: SERTRALINE HCL 50 MG TAB PO SCH (09:37)
[2019-10-29] MEDS: CLOPIDOGREL BISULFATE 75 MG TAB PO SCH (09:37)
[2019-10-29] MEDS: DRONEDARONE HCL 400 MG TAB PO SCH (09:37)
[2019-10-29] MEDS: ASCORBIC ACID 500 MG TAB PO SCH (09:37)
[2019-10-29] MEDS: ASPirin 81 mg TAB PO SCH (09:37)
[2019-10-29] MEDS: Linaclotide Base (Linzess) 72 MCG PO SCH (09:38)
[2019-10-29 12:19] VITALS: BP 108/59
== END 2019-10-29 14:05 | disposition home or self-care (01) | DRG 246 ==
LOC: EDBD 02:40 → ER 02:44 → TELE 02:45 → TELE-CENTR 11:25
PROVIDERS: ADMIT Internal Medicine; ATTEND Family Medicine
PROC: 027135Z Dilation of Coronary Artery, Two Arteries with Two Drug-eluting Intraluminal Devices, Percutaneous Approach (ICD-10-PCS; 2019-10-26)
PROC: 4A023N7 Measurement of Cardiac Sampling and Pressure, Left Heart, Percutaneous Approach (ICD-10-PCS; principal; 2019-10-27)
PROC: B2111ZZ Fluoroscopy of Multiple Coronary Arteries using Low Osmolar Contrast (ICD-10-PCS; 2019-10-27)
PROC: B2151ZZ Fluoroscopy of Left Heart using Low Osmolar Contrast (ICD-10-PCS; 2019-10-27)
PROC: 02C03ZZ Extirpation of Matter from Coronary Artery, One Artery, Percutaneous Approach (ICD-10-PCS; 2019-10-27)
DX: T82.855A Stenosis of coronary artery stent, initial encounter (principal); I21.4 Non-ST elevation (NSTEMI) myocardial infarction; J96.10 Chronic respiratory failure, unspecified whether with hypoxia or hypercapnia; I48.91 Unspecified atrial fibrillation; J44.9 Chronic obstructive pulmonary disease, unspecified; D64.9 Anemia, unspecified; E78.5 Hyperlipidemia, unspecified; N40.0 Benign prostatic hyperplasia without lower urinary tract symptoms; D63.8 Anemia in other chronic diseases classified elsewhere; I25.10 Atherosclerotic heart disease of native coronary artery without angina pectoris; F32.9 Major depressive disorder, single episode, unspecified; I10 Essential (primary) hypertension; K21.9 Gastro-esophageal reflux disease without esophagitis; F41.9 Anxiety disorder, unspecified; E78.00 Pure hypercholesterolemia, unspecified; Z88.1 Allergy status to other antibiotic agents; Z88.8 Allergy status to other drugs, medicaments and biological substances; Z79.899 Other long term (current) drug therapy; Z90.49 Acquired absence of other specified parts of digestive tract; Z90.89 Acquired absence of other organs; Z99.81 Dependence on supplemental oxygen; Z86.14 Personal history of Methicillin resistant Staphylococcus aureus infection; Z87.01 Personal history of pneumonia (recurrent)
CPT/HCPCS: 36415; 71045; 80048; 80053; 80061; 81001; 82550; 83735; 83880; 84484; 85025; 85610; 85730; 86141; 87081; 92928; 93005; 93306; 93458; 94640; 96360; 99152; 99153; C1874; G0378; J2250; Q9967

== ENCOUNTER 2020-03-25 21:54 | Inpatient (IN) | payer MEDICARE, OTHER ==
[~2020-03-25] VITALS: Ht 182.9 cm; Wt 67.0 kg
[~2020-03-25 21:54] MED LIST changes: +ALBU2TAB4 PO; +ASPI325T4 PO; +ATOR10TA52 PO; +DOCU-94 PO; +MULT-733; -MULTTAB; -SIMV5TAB50 PO; +VERA120T3 PO
[2020-03-25 23:30] LABS: Basophils # (auto) 0 10 ^3/uL (0-0.2); Eosinophils # (auto) 0 10 ^3/uL (0-0.8); Eosinophils % (auto) 0.1 % (0.0-7.0); Lymphocytes # (auto) 0.2 10 ^3/uL (0.4-5.4); Monocytes # (auto) 0.1 10 ^3/uL (0-1.3); Red Blood Cells 4.82 10^6/uL (4.5-5.90)
[2020-03-25 23:31] LABS: Basophils % (auto) 0.3 % (0.0-2.0); Hematocrit 39.3 % (41.0-53.0); Hemoglobin 12.2 g/dL (13.5-17.5); Lymphocytes % (auto) 2.2 % (10.0-50.0); Mean Corpuscular Hemoglobin 25.3 pg (28.0-32.0); Mean Corpuscular Volume 81.6 fL (80.0-100.0); Neutrophils # (auto) 7.5 10 ^3/uL (1.6-8.6); Neutrophils % (auto) 96.4 % (37.0-80.0); Platelet Count (auto) 213 10^3/uL (140-450); White Blood Cell 7.8 10^3/uL (4.4-10.8)
[2020-03-25 23:33] LABS: Red Cell Distribution Width 28.2 % (11.8-14.3)
[2020-03-25 23:46] LABS: Partial Thromboplastin Time 32.8 sec (23.0-31.2)
[2020-03-25 23:52] LABS: Alanine Aminotransferase 20 U/L (16-61); Albumin 3.4 g/dL (3.4-5.0); Anion Gap 5 (5-15); Aspartate Aminotransferase 14 U/L (15-37); BUN/Creatinine Ratio 21.3; Blood Urea Nitrogen 17 mg/dL (7-18); Calcium 8.8 mg/dL (8.5-10.1); Carbon Dioxide 26 mmol/L (21-32); Chloride 109 mmol/L (98-107); GFR African American 119 mL/min; GFR Non-African American 98 mL/min; Glucose 127 mg/dL (74-106); Magnesium 2.1 mg/dL (1.6-2.6); Potassium 4.2 mmol/L (3.5-5.1); Sodium 140 mmol/L (136-145)
[2020-03-25 23:57] LABS: Alkaline Phosphatase 73 U/L (45-117); Bilirubin, Total 0.3 mg/dL (0.2-1.0); Total Protein 6.9 g/dL (6.4-8.2)
[2020-03-26] MEDS ORDERED: ALBUTEROL SULF 2.5 MG/0.5ML(0.5%) NEB SOLN NEB ONE ×2 (00:45)
[2020-03-26] MEDS ORDERED: IPRATROPIUM BROM 0.5 MG/2.5ML INH SOL NEB ONE ×2 (00:45)
[2020-03-26] MEDS ORDERED: FUROSEMIDE 20 MG/2 ML VIAL IV ONE (01:45)
[2020-03-26] MEDS ORDERED: NITROGLYCERIN 0.4 MG SL TAB SL PRN (02:45)
[2020-03-26] MEDS ORDERED: ACETAMINOPHEN 325 MG TAB PO PRN (02:45)
[2020-03-26] MEDS ORDERED: ONDANSETRON HCL 4 MG/2 ML VIAL IV PRN (02:45)
[2020-03-26] MEDS ORDERED: MORPHINE SULF INJ 2 MG/ML SYRINGE 1ML IV PRN (02:45)
[2020-03-26 05:57] LABS: Urine Bacteria FEW /hpf (None Seen); Urine Blood Negative /uL (Negative); Urine Hyaline Cast FEW /lpf (0 - 2); Urine Mucus FEW (None Seen); Urine Specific Gravity 1.022 (1.001-1.035); Urine WBC 2 /hpf (0 - 3)
[2020-03-26] MEDS: IPRATROPIUM BROM 0.5 MG/2.5ML INH SOL NEB SCH ×3 (06:00→20:40)
[2020-03-26] MEDS: BUDESONIDE (INHALATION) 0.5 MG/2 ML NEB NEB SCH ×2 (07:11→20:48)
[2020-03-26] MEDS: ALBUTEROL SULF 2.5 MG/0.5ML(0.5%) NEB SOLN NEB SCH ×3 (07:11→20:40)
[2020-03-26] MEDS: VERAPAMIL HCL 120 mg ER tab PO SCH (09:47)
[2020-03-26] MEDS: SERTRALINE HCL 50 MG TAB PO SCH (09:48)
[2020-03-26] MEDS: ENOXAPARIN SOD 40 MG/0.4 ML SYRINGE SC SCH (09:48)
[2020-03-26] MEDS ORDERED: FAMOTIDINE 20 MG TAB PO SCH (10:00)
[2020-03-26] MEDS ORDERED: GABAPENTIN 300 MG CAP PO SCH (10:00)
[2020-03-26] MEDS ORDERED: AMIODARONE HCL 200 MG TAB PO ONE (17:30)
[2020-03-26] MEDS ORDERED: CLOPIDOGREL BISULFATE 75 MG TAB PO ONE (17:30)
[2020-03-26] MEDS ORDERED: cefTRIAXone 1GM/50ML D5W 50 ML IV ONE (18:00)
[2020-03-26] MEDS ORDERED: PANTOPRAZOLE 40 MG TAB PO ONE (18:00)
[2020-03-26] MEDS ORDERED: AZITHROMYCIN 250 MG TAB PO ONE (18:00)
[2020-03-26] MEDS ORDERED: ASPirin 81 mg TAB PO ONE (18:00)
[2020-03-26] MEDS ORDERED: methylPREDNISolone SOD SUCC 125 MG/2 ML VL IV ONE (18:00)
[2020-03-26] MEDS: ATORVASTATIN 20 MG TAB PO SCH (21:48)
[2020-03-26] MEDS: TEMAZEPAM 15 MG CAP PO PRN (21:48)
[2020-03-26] MEDS: GABAPENTIN 300 MG CAP PO SCH (21:48)
[2020-03-27] MEDS: ALBUTEROL SULF 2.5 MG/0.5ML(0.5%) NEB SOLN NEB SCH ×5 (01:08→19:20)
[2020-03-27] MEDS: ALPRAZolam 0.25 MG TAB PO PRN (02:43)
[2020-03-27 06:25] LABS: Basophils # (auto) 0 10 ^3/uL (0-0.2); Eosinophils # (auto) 0 10 ^3/uL (0-0.8); Monocytes # (auto) 0.1 10 ^3/uL (0-1.3)
[2020-03-27 06:30] LABS: Basophils % (auto) 0.1 % (0.0-2.0); Hematocrit 38.4 % (41.0-53.0); Hemoglobin 12.1 g/dL (13.5-17.5); Lymphocytes # (auto) 0.4 10 ^3/uL (0.4-5.4); Lymphocytes % (auto) 7.5 % (10.0-50.0); Mean Corpuscular Hemoglobin 25.5 pg (28.0-32.0); Mean Corpuscular Hgb Conc. 31.5 g/dL (32.0-36.0); Mean Corpuscular Volume 80.8 fL (80.0-100.0); Monocytes % (auto) 2.7 % (0.0-12.0); Neutrophils # (auto) 4.4 10 ^3/uL (1.6-8.6); Neutrophils % (auto) 89.7 % (37.0-80.0); Platelet Count (auto) 226 10^3/uL (140-450); Red Blood Cells 4.75 10^6/uL (4.5-5.90); White Blood Cell 4.9 10^3/uL (4.4-10.8)
[2020-03-27 06:40] LABS: Calcium 8.7 mg/dL (8.5-10.1); Potassium 3.8 mmol/L (3.5-5.1)
[2020-03-27 06:42] LABS: BUN/Creatinine Ratio 32.8
[2020-03-27 06:48] LABS: Red Cell Distribution Width 28.1 % (11.8-14.3)
[2020-03-27] MEDS: IPRATROPIUM BROM 0.5 MG/2.5ML INH SOL NEB SCH ×4 (09:38→19:21)
[2020-03-27] MEDS: BUDESONIDE (INHALATION) 0.5 MG/2 ML NEB NEB SCH ×2 (09:38→19:21)
[2020-03-27] MEDS ORDERED: methylPREDNISolone SOD SUCC 40 MG/ML VL IV SCH (10:00)
[2020-03-27] MEDS: ASPirin 81 mg TAB PO SCH (10:19)
[2020-03-27] MEDS: CLOPIDOGREL BISULFATE 75 MG TAB PO SCH (10:20)
[2020-03-27] MEDS: AMIODARONE HCL 200 MG TAB PO SCH ×2 (10:20→21:35)
[2020-03-27] MEDS: PANTOPRAZOLE 40 MG TAB PO SCH (10:20)
[2020-03-27] MEDS: GABAPENTIN 300 MG CAP PO SCH ×2 (10:20→21:35)
[2020-03-27] MEDS: VERAPAMIL HCL 120 mg ER tab PO SCH (10:20)
[2020-03-27] MEDS: ENOXAPARIN SOD 40 MG/0.4 ML SYRINGE SC SCH (10:21)
[2020-03-27] MEDS: SERTRALINE HCL 50 MG TAB PO SCH (10:21)
[2020-03-27] MEDS: methylPREDNISolone SOD SUCC 40 MG/ML VL IV SCH ×2 (15:10→21:36)
[2020-03-27] MEDS ORDERED: PANT40TA2 PO (16:39)
[2020-03-27] MEDS ORDERED: GABA300C10 PO (16:39)
[2020-03-27] MEDS ORDERED: CLOP75TA28 PO (16:39)
[2020-03-27 17:00] VITALS: BP 123/72
[2020-03-27] MEDS: cefTRIAXone 1GM/50ML D5W 50 ML IV SCH (21:34)
[2020-03-27] MEDS: ATORVASTATIN 20 MG TAB PO SCH (21:35)
[2020-03-27] MEDS: AZITHROMYCIN 250 MG TAB PO SCH (21:35)
[2020-03-27 22:00] VITALS: BP 131/73
[2020-03-28] MEDS: ALBUTEROL SULF 2.5 MG/0.5ML(0.5%) NEB SOLN NEB SCH ×4 (00:23→19:33)
[2020-03-28] MEDS: IPRATROPIUM BROM 0.5 MG/2.5ML INH SOL NEB SCH ×4 (00:24→19:32)
[2020-03-28] MEDS: TEMAZEPAM 15 MG CAP PO PRN ×2 (00:29→22:40)
[2020-03-28 05:00] VITALS: BP 118/71
[2020-03-28] MEDS: ALPRAZolam 0.25 MG TAB PO PRN (05:33)
[2020-03-28] MEDS: methylPREDNISolone SOD SUCC 40 MG/ML VL IV SCH ×3 (05:33→22:47)
[2020-03-28] MEDS: BUDESONIDE (INHALATION) 0.5 MG/2 ML NEB NEB SCH ×2 (07:23→22:00)
[2020-03-28 08:58] VITALS: BP 114/75
[2020-03-28] MEDS: ENOXAPARIN SOD 40 MG/0.4 ML SYRINGE SC SCH (09:30)
[2020-03-28] MEDS: CLOPIDOGREL BISULFATE 75 MG TAB PO SCH (09:30)
[2020-03-28] MEDS: ASPirin 81 mg TAB PO SCH (09:30)
[2020-03-28] MEDS: PANTOPRAZOLE 40 MG TAB PO SCH (09:31)
[2020-03-28] MEDS: AMIODARONE HCL 200 MG TAB PO SCH ×2 (09:31→22:47)
[2020-03-28] MEDS: VERAPAMIL HCL 120 mg ER tab PO SCH (09:31)
[2020-03-28] MEDS: SERTRALINE HCL 50 MG TAB PO SCH (09:31)
[2020-03-28] MEDS: GABAPENTIN 300 MG CAP PO SCH ×2 (09:31→22:48)
[2020-03-28 13:00] VITALS: BP 117/64
[2020-03-28 16:49] VITALS: BP 109/63
[2020-03-28 22:00] VITALS: BP 118/56
[2020-03-28] MEDS: AZITHROMYCIN 250 MG TAB PO SCH (22:47)
[2020-03-28] MEDS: cefTRIAXone 1GM/50ML D5W 50 ML IV SCH (22:47)
[2020-03-28] MEDS: ATORVASTATIN 20 MG TAB PO SCH (22:48)
[2020-03-29] MEDS: ALBUTEROL SULF 2.5 MG/0.5ML(0.5%) NEB SOLN NEB SCH ×6 (00:38→22:40)
[2020-03-29 03:48] VITALS: BP 118/56
[2020-03-29 05:00] VITALS: BP 136/78
[2020-03-29] MEDS: ALPRAZolam 0.25 MG TAB PO PRN (05:49)
[2020-03-29] MEDS: methylPREDNISolone SOD SUCC 40 MG/ML VL IV SCH ×2 (05:49→22:22)
[2020-03-29] MEDS: IPRATROPIUM BROM 0.5 MG/2.5ML INH SOL NEB SCH ×5 (06:29→22:40)
[2020-03-29] MEDS: BUDESONIDE (INHALATION) 0.5 MG/2 ML NEB NEB SCH ×2 (06:29→19:08)
[2020-03-29] MEDS: ASPirin 81 mg TAB PO SCH (08:56)
[2020-03-29] MEDS: VERAPAMIL HCL 120 mg ER tab PO SCH (08:57)
[2020-03-29] MEDS: AMIODARONE HCL 200 MG TAB PO SCH ×2 (08:58→22:23)
[2020-03-29] MEDS: GABAPENTIN 300 MG CAP PO SCH ×2 (08:58→22:23)
[2020-03-29] MEDS: CLOPIDOGREL BISULFATE 75 MG TAB PO SCH (08:59)
[2020-03-29] MEDS: SERTRALINE HCL 50 MG TAB PO SCH (08:59)
[2020-03-29] MEDS: PANTOPRAZOLE 40 MG TAB PO SCH (08:59)
[2020-03-29 09:00] VITALS: BP 123/72
[2020-03-29] MEDS: ENOXAPARIN SOD 40 MG/0.4 ML SYRINGE SC SCH (09:00)
[2020-03-29 12:36] VITALS: BP 126/72
[2020-03-29] MEDS: guaiFENesin-DM 100/10mg/5ml SYR PO PRN ×2 (13:57→22:23)
[2020-03-29 16:57] VITALS: BP 130/64
[2020-03-29] MEDS: AZITHROMYCIN 250 MG TAB PO SCH (20:59)
[2020-03-29 22:00] VITALS: BP 118/64
[2020-03-29] MEDS: cefTRIAXone 1GM/50ML D5W 50 ML IV SCH (22:22)
[2020-03-29] MEDS: TEMAZEPAM 15 MG CAP PO PRN (22:23)
[2020-03-29] MEDS: ATORVASTATIN 20 MG TAB PO SCH (22:23)
[2020-03-30] MEDS: ALPRAZolam 0.25 MG TAB PO PRN (03:50)
[2020-03-30 05:00] VITALS: BP 120/66
[2020-03-30] MEDS: ALBUTEROL SULF 2.5 MG/0.5ML(0.5%) NEB SOLN NEB SCH ×2 (06:00→11:10)
[2020-03-30] MEDS: IPRATROPIUM BROM 0.5 MG/2.5ML INH SOL NEB SCH ×2 (06:00→11:10)
[2020-03-30] MEDS: BUDESONIDE (INHALATION) 0.5 MG/2 ML NEB NEB SCH (06:00)
[2020-03-30 09:00] VITALS: BP 113/65
[2020-03-30] MEDS: ASPirin 81 mg TAB PO SCH (09:35)
[2020-03-30] MEDS: VERAPAMIL HCL 120 mg ER tab PO SCH (09:35)
[2020-03-30] MEDS: methylPREDNISolone SOD SUCC 40 MG/ML VL IV SCH (09:35)
[2020-03-30] MEDS: CLOPIDOGREL BISULFATE 75 MG TAB PO SCH (09:36)
[2020-03-30] MEDS: GABAPENTIN 300 MG CAP PO SCH (09:36)
[2020-03-30] MEDS: PANTOPRAZOLE 40 MG TAB PO SCH (09:36)
[2020-03-30] MEDS: ENOXAPARIN SOD 40 MG/0.4 ML SYRINGE SC SCH (09:36)
[2020-03-30] MEDS: AMIODARONE HCL 200 MG TAB PO SCH (09:36)
[2020-03-30] MEDS: SERTRALINE HCL 50 MG TAB PO SCH (09:36)
[2020-03-30] MEDS: guaiFENesin-DM 100/10mg/5ml SYR PO PRN (09:37)
== END 2020-03-30 12:30 | disposition home or self-care (01) | DRG 190 ==
LOC: EDBD 21:54 → ER 22:00 → TELE 22:01 → TELE-WESTW 03-27 16:20
PROVIDERS: ADMIT Nurse Practitioner; ATTEND Internal Medicine
DX: J44.1 Chronic obstructive pulmonary disease with (acute) exacerbation (principal); J96.20 Acute and chronic respiratory failure, unspecified whether with hypoxia or hypercapnia; J18.9 Pneumonia, unspecified organism; J44.0 Chronic obstructive pulmonary disease with (acute) lower respiratory infection; I50.9 Heart failure, unspecified; I48.91 Unspecified atrial fibrillation; E78.5 Hyperlipidemia, unspecified; I11.0 Hypertensive heart disease with heart failure; F32.9 Major depressive disorder, single episode, unspecified; I25.10 Atherosclerotic heart disease of native coronary artery without angina pectoris; R13.10 Dysphagia, unspecified; F41.9 Anxiety disorder, unspecified; K21.9 Gastro-esophageal reflux disease without esophagitis; R53.81 Other malaise; Z20.828 Contact with and (suspected) exposure to other viral communicable diseases; E78.00 Pure hypercholesterolemia, unspecified; Z95.5 Presence of coronary angioplasty implant and graft; I25.2 Old myocardial infarction; Z90.49 Acquired absence of other specified parts of digestive tract
CPT/HCPCS: 36415; 36600; 71045; 80048; 80053; 81001; 82805; 83735; 83880; 84443; 84484; 85025; 85379; 85610; 85730; 87426; 92610; 93005; 94640; 96374; G0378; J0696